=== PATIENT | male | born 1990 | race Caucasian/White ===

== ENCOUNTER 2018-03-06 17:09 | Emergency (ER) | payer OTHER ==
[2018-03-06 17:25] VITALS: BP 131/85; PULSE 98; TEMP 98.6; BMI 24.8
--- NOTE | 2018-03-06 17:26 | PDOC ---
Rapid Medical Evaluation Chief Complaint: Chest Pain Time Seen by Provider: 03/06/18 17:23 Medical Evaluation: Allergies Allergy/AdvReac Type Severity Reaction Status Date / Time No Known Allergies Allergy Verified 03/06/18 17:23 03/06/18 17:24 I have performed a brief in-person evaluation of this patient. The patient presents with a chief complaint of:chest pain x 2 days. Had neg ekg and labs at [facility] today but states he was referred to ED for unclear reasons. No illicit drugs. No recent travel Pertinent physical exam findings:stable w/ clear chest/lungs I have ordered the following:ekg/cxr The patient will proceed to the ED for further evaluation. Discharge Disposition - Diagnosis Chest pain Qualifiers: Chest pain type: unspecified Qualified Code(s): R07.9 - Chest pain, unspecified - Referrals - Patient Instructions - Post Discharge Activity
[2018-03-06] MEDS ORDERED: KETOROLAC TROMETHAMINE 60 MG/2 ML VIAL IM ONE (18:18)
--- NOTE | 2018-03-06 18:25 | PDOC ---
History of Present Illness - General Chief Complaint: Chest Pain Stated Complaint: CHEST PAIN Time Seen by Provider: 03/06/18 17:23 - History of Present Illness Initial Comments: 27-year-old male free of any medical issues past surgical history presents for evaluation of chest pain 2 months. He is unsure of any exacerbating or relieving factors he states he has had a cough and has been congested over the last few weeks. No radiation of symptoms. 03/06/18 18:21 Past History - Past Medical History Allergies/Adverse Reactions: Allergies Allergy/AdvReac Type Severity Reaction Status Date / Time No Known Allergies Allergy Verified 03/06/18 17:23 Home Medications: Ambulatory Orders No Home Medications 0 dose .ROUTE UTDICT 11/30/12 Cetirizine HCl/Pseudoephedrine [Zyrtec-D Tablet] 1 each PO DAILY #30 tab.er.12h 03/06/18 - Surgical History Abdominal Surgery: Yes Appendectomy: Yes - Immunization History Immunization Up to Date: Yes - Suicide/Smoking/Psychosocial Hx Smoking Status: Yes Smoking History: Never smoked Number of Cigarettes Smoked Daily: 6 Hx Alcohol Use: Yes (occssion) Review of Systems - Review of Systems Comments:: GENERAL/CONSTITUTIONAL: [No fever or chills. No weakness. No weight change.] HEAD, EYES, EARS, NOSE AND THROAT: [No change in vision. + L ear pain no discharge. No sore throat.] CARDIOVASCULAR: [+ chest pain no shortness of breath.] RESPIRATORY: [No cough, wheezing, or hemoptysis.] GASTROINTESTINAL: [No nausea, vomiting, diarrhea or constipation. No rectal bleeding.] GENITOURINARY: [No dysuria, frequency, or change in urination.] MUSCULOSKELETAL: [No joint or muscle swelling or pain. No neck or back pain.] SKIN AND BREASTS: [No rash or easy bruising.] NEUROLOGIC: [No headache, vertigo, loss of consciousness, or loss of sensation.] PSYCHIATRIC: [No depression or anxiety.] ENDOCRINE: [No increased thirst. No abnormal weight change.] HEMATOLOGIC/LYMPHATIC: [No anemia, easy bleeding, or history of blood clots.] ALLERGIC/IMMUNOLOGIC: [No hives or skin allergy. No latex allergy.] 03/06/18 18:21 *Physical Exam - Vital Signs Last Vital Signs Temp Pulse Resp BP Pulse Ox 98.6 F 98 H 18 131/85 100 03/06/18 17:23 03/06/18 17:23 03/06/18 17:23 03/06/18 17:23 03/06/18 17:23 - Physical Exam Comments: GENERAL: [The patient is awake, alert, and fully oriented, in no acute distress. ] HEAD: [Normal with no signs of trauma.] EYES: [Pupils equal, round and reactive to light, extraocular movements intact, sclera anicteric, conjunctiva clear.] ENT: [I'll the injection the left auditory canal. Tympanic membrane is normal. Right ear is normal, nares patent, oropharynx clear without exudates. Moist mucous membranes.] NECK: [Normal range of motion, supple without lymphadenopathy, JVD, or masses.] LUNGS: [Breath sounds equal, clear to auscultation bilaterally. No wheezes, and no crackles.] HEART: [Regular rate and rhythm, normal S1 and S2 without murmur, rub or gallop. He does have left and right costochondral tenderness] ABDOMEN: [Soft, nontender, normoactive bowel sounds. No guarding, no rebound. No masses.] EXTREMITIES: [Normal range of motion, no edema. No clubbing or cyanosis. No cords, erythema, or tenderness.] NEUROLOGICAL: [Cranial nerves II through XII grossly intact. Normal speech, normal gait.] PSYCH: [Normal mood, normal affect.] SKIN: [Warm, Dry, normal turgor, no rashes or lesions noted.] 03/06/18 18:22 Medical Decision Making - Medical Decision Making His is most likely costochondritis he has very reproducible chest pain. I'll give him a shot of Toradol and reevaluate him and check his progress. Given him a decongestant for his ears and sinuses. 03/06/18 18:23 *DC/Admit/Observation/Transfer Diagnosis at time of Disposition: Costochondral chest pain, Environmental allergies Chest pain Qualifiers: Chest pain type: unspecified Qualified Code(s): R07.9 - Chest pain, unspecified - Discharge Dispostion Disposition: HOME Condition at time of disposition: Improved - Prescriptions Prescriptions: Cetirizine HCl/Pseudoephedrine [Zyrtec-D Tablet] 1 each PO DAILY #30 tab.er.12h - Referrals Referrals: Farzana Palmer MD [Primary Care Provider] - - Patient Instructions Printed Discharge Instructions: Allergic Rhinitis, DI for Costochondritis, Costochondritis Additional Instructions: Return to the emergency room if your symptoms worsen or go unresolved. This is musculoskeletal chest pain and can be treated with anti-inflammatories I did call you on a prescription for and ALLERGY medicine which should help your ear congestion follow-up with her primary care doctor in 1-2 days - Post Discharge Activity
[2018-03-06] MEDS ORDERED: KETOROLAC TROMETHAMINE 60 MG/2 ML VIAL ONE (18:35)
[2018-03-06] MEDS ORDERED: IBUPROFEN 400 MG TABLET (FP) PO ONE ×2 (19:10→19:19)
--- NOTE | 2018-03-07 11:57 | EKG ---
Test Reason : Blood Pressure : / mmHG Vent. Rate : 096 BPM Atrial Rate : 096 BPM P-R Int : 146 ms QRS Dur : 086 ms QT Int : 320 ms P-R-T Axes : 068 -16 060 degrees QTc Int : 404 ms NORMAL SINUS RHYTHM POSSIBLE LEFT ATRIAL ENLARGEMENT BORDERLINE ECG WHEN COMPARED WITH ECG OF 30-NOV-2012 03:14, VENT. RATE HAS INCREASED BY 32 BPM NONSPECIFIC T WAVE ABNORMALITY NOW EVIDENT IN LATERAL LEADS Confirmed by BRYANT DONALDSON MD ([id number]) on 03/07/2018 11:57:40 AM Referred By: Confirmed By:BRYANT DONALDSON MD
== END 2018-03-06 19:37 | disposition home or self-care (01) ==
LOC: JERFT 17:09
DX: M94.0 Chondrocostal junction syndrome [Tietze] (principal); J30.2 Other seasonal allergic rhinitis
CPT/HCPCS: 71046-TC-FY; 93005; 93010; 99281-25

== ENCOUNTER 2018-07-31 14:41 | Emergency (ER) | payer OTHER ==
[2018-07-31 14:45] VITALS: BP 120/66; PULSE 85; TEMP 98; BMI 24.4
--- NOTE | 2018-07-31 15:14 | PDOC ---
Rapid Medical Evaluation Chief Complaint: Rash Time Seen by Provider: 07/31/18 15:07 Medical Evaluation: Allergies Allergy/AdvReac Type Severity Reaction Status Date / Time No Known Allergies Allergy Verified 07/31/18 14:45 Vital Signs Temp Pulse Resp BP Pulse Ox 98 F 85 18 120/66 98 07/31/18 14:42 07/31/18 14:42 07/31/18 14:42 07/31/18 14:42 07/31/18 14:42 07/31/18 15:07 The patient presents to the ED with: went to pmd but sent here for genital herpes. Not treated but told to f/u ID. pt unhappy and wants just to be given antiviral for penile rash The patient on brief exam: vesicles to shaft The patient ordered for: none The patient to proceed to the ED Discharge Disposition - Diagnosis Rash - Referrals - Patient Instructions - Post Discharge Activity
--- NOTE | 2018-07-31 15:49 | PDOC ---
History of Present Illness - General Chief Complaint: Rash Stated Complaint: PCP SENT/EVALUATION Time Seen by Provider: 07/31/18 15:07 - History of Present Illness Initial Comments: 07/31/18 15:46 27-year-old male presenting for painful lesions on his penis over the last month. He states he underwent a blood test by his primary care physician and was told he has type I herpes and to come to the emergency room to be treated. He has no comorbidities or ALLERGIES to medications Past History - Past Medical History Allergies/Adverse Reactions: Allergies Allergy/AdvReac Type Severity Reaction Status Date / Time No Known Allergies Allergy Verified 07/31/18 14:45 Home Medications: Ambulatory Orders Acyclovir [Zovirax -] 400 mg PO TID #21 tablet 07/31/18 COPD: No - Surgical History Abdominal Surgery: Yes Appendectomy: Yes - Immunization History Immunization Up to Date: Yes - Suicide/Smoking/Psychosocial Hx Smoking Status: Yes Smoking History: Never smoked Number of Cigarettes Smoked Daily: 6 Hx Alcohol Use: Yes (occssion) Review of Systems - Review of Systems : Yes: See HPI, Lesions All Other Systems: Reviewed and Negative *Physical Exam - Vital Signs Last Vital Signs Temp Pulse Resp BP Pulse Ox 98 F 85 18 120/66 98 07/31/18 14:42 07/31/18 14:42 07/31/18 14:42 07/31/18 14:42 07/31/18 14:42 - Physical Exam Comments: HEAD: NC/AT EYES: Conjuntiva clear MS: Full ROM in all joints without edema NEUROLOGIC: No gross sensory or motor deficits, NVID SKIN: Normal color and temperature no lesions or rashes : There are small vesicular lesions around the glans of the penis without open wounds which are nonpainful. 07/31/18 15:47 Medical Decision Making - Medical Decision Making I will treat this with acyclovir and have him follow-up with his primary care physician. 07/31/18 15:48 *DC/Admit/Observation/Transfer Diagnosis at time of Disposition: Rash, Herpes genitalia - Discharge Dispostion Disposition: HOME Condition at time of disposition: Stable Decision to Admit order: No - Prescriptions Prescriptions: Acyclovir [Zovirax -] 400 mg PO TID #21 tablet - Referrals Referrals: Hameedi,Rukshinda, MD [Primary Care Provider] - - Patient Instructions Additional Instructions: Please take the medication as directed return to the emergency room should symptoms worsen or go unresolved. Follow up with her primary care physician one to 2 days further evaluation and treatment options. - Post Discharge Activity
== END 2018-07-31 16:00 | disposition home or self-care (01) ==
LOC: JERFT 14:41
DX: A60.00 Herpesviral infection of urogenital system, unspecified (principal); R21 Rash and other nonspecific skin eruption
CPT/HCPCS: 99281-25

== ENCOUNTER 2021-03-25 12:11 | Emergency (ER) | payer OTHER ==
[2021-03-25 12:16] VITALS: BMI 31.1
[2021-03-25 13:55] LABS: BASO % 0.2 % (0-2.0); HEMATOCRIT 42.1 % (35.4-49); HEMOGLOBIN 14.8 GM/dL (11.7-16.9); MCH 29.1 pg (25.7-33.7); MCHC 35.2 g/dl (32.0-35.9); MEAN CELL VOLUME 82.9 fl (80-96); MEAN PLT VOLUME 8.6 fl (7.5-11.1); MONO % 4.8 % (3.8-10.2); PLATELET COUNT 197 K/MM3 (134-434); RBC 5.09 M/mm3 (4.00-5.60); RDW 13.8 % (11.9-15.9); WHITE BLOOD COUNT 13.2 K/mm3 (4.0-10.0)
[2021-03-25 14:02] LABS: INR 1.04 (0.83-1.09); PROTHROMBIN TIME (PATIENT) 12.6 SEC (9.7-13.0)
[2021-03-25 14:22] LABS: ALBUMIN 4.8 g/dl (3.4-5.0)
[2021-03-25 14:25] LABS: CREATININE 1.1 mg/dL (0.55-1.3)
[2021-03-25 14:26] LABS: BILIRUBIN,TOTAL 0.6 mg/dL (0.2-1); TOT PROT 8.4 g/dl (6.4-8.2)
[2021-03-25] MEDS ORDERED: DEXAMETHASONE SOD PHOSPHATE 10 MG/1 ML VIAL IVPUSH ONE (14:41)
[2021-03-25] MEDS ORDERED: DEXAMETHASONE SOD PHOSPHATE 10 MG/1 ML VIAL ONE (14:58)
[2021-03-25 15:26] LABS: URINE APPEARANCE CLEAR; URINE BILIRUBIN NEGATIVE (NEGATIVE); URINE COLOR YELLOW; URINE GLUCOSE (UA) NEGATIVE (NEGATIVE); URINE KETONE NEGATIVE (NEGATIVE); URINE LEUK ESTERASE NEGATIVE (NEGATIVE); URINE NITRITE NEGATIVE (NEGATIVE); URINE PROTEIN NEGATIVE (NEGATIVE); URINE UROBILINOGEN 0.2 mg/dL (0.2-1.0)
[2021-03-25 16:19] VITALS: BP 128/71; PULSE 88; TEMP 98.1
== END 2021-03-25 16:07 | disposition home or self-care (01) ==
LOC: JER 12:11
PROC: 3E033GC Introduction of Other Therapeutic Substance into Peripheral Vein, Percutaneous Approach (ICD-10-PCS; principal; 2021-03-25)
DX: R10.11 Right upper quadrant pain (principal)
CPT/HCPCS: 36415; 76705-TC; 80053; 80074; 81003; 83690; 85025; 85610; 99284-25; J1100